=== PATIENT | female | born 1980 | race Caucasian/White ===

== ENCOUNTER 2021-12-12 19:34 | Emergency (ER) | payer BC ==
[~2021-12-12] VITALS: Ht 172.7 cm; Wt 94.5 kg
[2021-12-12 19:36] VITALS: BP 156/88
[2021-12-12] MEDS ORDERED: IV NORMAL SALINE 1000ML BAG 1,000 ML IV ONE (19:45)
[2021-12-12] MEDS ORDERED: SUMAtriptan SUCC 6 MG/0.5 ML VIAL. SQ ONE (19:45)
[2021-12-12 20:07] LABS: BASO % 1 % (0-3); EOS # 0.1 x10^3/uL (0.0-0.7); EOS % 1 % (0-3); HEMATOCRIT 40.4 % (36.0-47.0); HEMOGLOBIN 14.7 g/dL (12.0-15.5); LYMPH # 2.5 x10^3/uL (1.0-4.8); LYMPH % 35 % (24-48); MEAN CORPUSCULAR HEMOGLOBIN 32 pg (25-35); MEAN CORPUSCULAR HGB CONC 36 g/dL (31-37); MEAN CORPUSCULAR VOLUME 87 fL (79-100); MONO # 0.5 x10^3/uL (0.0-1.1); MONO % 7 % (0-9); NEUT # 3.9 x10^3/uL (1.8-7.7); NEUT % 56 % (31-73); PLATELET COUNT 136 x10^3/uL (140-400); RED BLOOD COUNT 4.62 x10^6/uL (3.50-5.40); RED CELL DISTRIBUTION WIDTH 12.3 % (11.5-14.5); WHITE BLOOD COUNT 7.1 x10^3/uL (4.0-11.0)
[2021-12-12 20:08] LABS: PROTHROMBIN TIME PATIENT 14.1 SEC (11.7-14.0)
[2021-12-12 20:10] LABS: CALCIUM 8.8 mg/dL (8.5-10.1); CREATININE 1.1 mg/dL (0.6-1.0); POTASSIUM 3.4 mmol/L (3.5-5.1)
[2021-12-12 20:16] LABS: ALBUMIN 4.2 g/dL (3.4-5.0); ALBUMIN/GLOBULIN RATIO 1.4 (1.0-1.7); TOTAL BILIRUBIN 0.9 mg/dL (0.2-1.0); TOTAL PROTEIN 7.3 g/dL (6.4-8.2)
--- NOTE | 2021-12-12 20:20 | RAD ---
PQRS Compliance Statement: One or more of the following individualized dose reduction techniques were utilized for this examinat ion: 1. Automated exposure control 2. Adjustment of the mA and/or kV according to patient size 3. Use of iterative reconstruction technique CT HEAD WITHOUT CONTRAST History: Reason: Stroke like symptoms, confusion, difficulty with speech. Comparison: None. Procedure: Axial images are obtained of the head from the skull base through the vertex without IV co ntrast. Findings: There is a dense left MCA in the sylvian fissure, images 10 and 11. The ventricles and sulci are normal for the patient's age. No mass-effect, midline shift, hemorrhage, extra-axial fluid collection, or obvious acute infarction is identified. Basilar cisterns are patent. Bone windows demonstrate no acute calvarial abnormality. The visualized paranasal sinuses are clear. Mastoid air cells are well aerated. IMPRESSION: There is dense left MCA in the sylvian fissure suspicious for thrombus of a middle cerebral artery br anch. FOR INTERNAL CODING PURPOSES Critical result: Findings discussed with NERISSA ALCOCER MD at 12/12/2021 8:11 PM. RESULT CODE: (C) Electronically signed by: Nilson Jolly MD (12/12/2021 8:18 PM) [facility]
--- NOTE | 2021-12-12 20:39 | RAD ---
Exam: Chest one INDICATION: Stroke TECHNIQUE: Frontal view of the chest Comparisons: None FINDINGS: The cardiomediastinal silhouette and pulmonary vessels are within normal limits. The lung and pleural spaces are clear. IMPRESSION: No acute cardiopulmonary process. Electronically signed by: Jerri Norris MD (12/12/2021 8:36 PM) [facility]
--- NOTE | 2021-12-12 20:39 | RAD ---
PQRS Compliance Statement: One or more of the following individualized dose reduction techniques were utilized for this examinat ion: 1. Automated exposure control 2. Adjustment of the mA and/or kV according to patient size 3. Use of iterative reconstruction technique CTA STROKE HEAD/NECK w/o Clinical Indication: Reason: Stroke like symptoms, one side weakness, slurred speech Comparison: CT head without contrast, earlier same day. Technique: Helical CT imaging from inferior to the aortic arch to the skull vertex is performed after 75 cc of Omnipaque [address] angiogram protocol. 3-D MIP reconstructions of the cervi wagner carotid arteries and [place] of [place] are performed. PQRS Compliance Statement - Stenosis calculations for CT, MR and conventional angiography are based u macario measurement of the distal ICA diameter in accordance with the NASCET methodology. Stenosis calcu lations for carotid ultrasound studies are derived from validated velocity criteria which are known t o correlate with the NASCET methodology. Findings: There is abrupt truncation of a left middle cerebral artery branch in the sylvian fissure compatible with thrombus, image 77. The aortic arch branches are patent. The cervical vertebral arteries are patent. The right artery is dominant. The posterior circulation is intact. There is persistent origin of the right posterio r cerebral artery. The common carotid arteries are patent. The right carotid bifurcation and the cervical right internal carotid artery are patent. There is occlusion of the proximal left internal carotid artery. There is severe narrowing of the lumen over the course of about 1.2 cm length, sagittal image 102. The suprac linoid left ICA is reconstituted from collateral flow. The dural venous sinuses are patent. No abnormal enhancement in the brain parenchyma is identified. The upper lungs are clear. There is degenerative spondylosis of the cervical spine most advanced at C 6/C7. The thyroid gland is heterogeneous. There is no cervical adenopathy. IMPRESSION: 1. There is abrupt truncation of a M2 branch of the left middle cerebral artery in the sylvian fissu re likely due to thrombus. 2. There is occlusion of the proximal left internal carotid artery possibly due to dissection. FOR INTERNAL CODING PURPOSES Critical result: Findings discussed with NERISSA ALCOCER MD at 12/12/2021 8:18 PM. RESULT CODE: (C) 1. Electronically signed by: Nilson Jolly MD (12/12/2021 8:37 PM) [facility]
--- NOTE | 2021-12-12 20:48 | PHYS DOC ---
Past Medical History Past Surgical History: Smoking Status: Current Every Day Smoker Alcohol Use: Occasionally Adult General Chief Complaint Chief Complaint: NEURO SYMPTOMS/DEFICITS HPI HPI The patient is a 41-year-old female with a history of tobacco use and who is otherwise healthy. She presents for evaluation of strokelike symptoms with onset at 7 PM exactly, about 40 minutes prior to arrival. Patient was noted to have difficulty speaking and to fall towards her right side and have trouble with her right side at a birthday constitution party for one of her children. She was feeling in her normal state of health earlier that day aside from what she describes as a migraine headache which she states got better before the onset of the symptoms for which she presented to the emergency department this evening. Upon initial evaluation here in the emergency department patient is anxious and hyperventilating but is able to tell me that her initial symptoms have completely resolved. She specifically denies fevers, nausea or vomiting, headache, any focal or lateralizing weakness, numbness or tingling right now, neck stiffness/pain/meningismus, vision changes, recent injury or trauma to her head, shortness of breath, chest pain of any kind, abdominal pain of any kind, hematemesis, hematochezia or melena recently. Patient is alert, appropriately interactive and in no acute distress with appropriate vital signs and blood glucose upon initial evaluation here in the emergency department. Review of Systems Review of Systems A 12 point review of systems was completed and was negative except where noted in HPI above. Current Medications Current Medications Current Medications Medications (Trade) Dose Ordered Sig/Iglesia Start Time Stop Time Status Last Admin Dose Admin Alteplase, Recombinant 76.5 ml @ 76.5 mls/hr 1X ONCE 12/12/21 21:30 12/12/21 22:29 Labetalol HCl (Normodyne Iv Push) 10 mg PRN Q10MIN PRN 12/12/21 21:00 Nicardipine HCl 50 mg/Sodium Chloride 250 ml @ 25 mls/hr CONT PRN PRN 12/12/21 21:00 Sodium Chloride 100 ml @ 100 mls/hr 1X ONCE 12/12/21 22:30 12/12/21 23:29 Sumatriptan Succinate (Imitrex) 6 mg 1X ONCE 12/12/21 19:45 12/12/21 20:39 DC Allergies Allergies Allergies Coded Allergies Type Severity Reaction Last Updated Verified No Known Drug Allergies 12/12/21 No Physical Exam Physical Exam 41-year-old female appearing nontoxic and in no acute distress, though anxious. Head is normocephalic and atraumatic. Neck is supple and nontender. Oropharynx is moist. Lungs are clear to auscultation at all stations. There is normal S1 and S2 without rubs or gallops and capillary refill is appropriate, less than 2 seconds globally. Abdomen is soft, nontender and nondistended. Skin is warm and dry without cyanosis, clubbing or edema. Psychiatrically, the patient demonstrates appropriate mood and affect and is alert. Evaluation of the extremities reveals BUEs and BLEs neurovascularly intact distally with strength out of 5, sensation intact light touch in all nerve distributions, radial, DP and PT pulses 2+ and equal bilaterally, capillary refill less than 2 seconds, hands and feet warm and well-perfused. No dependent peripheral edema distally. No calf tenderness or swelling bilaterally. Homans test is negative bilaterally. Neurologically, cranial nerves II through XII are intact and there are no lateralizing deficits seen. Speech is normal. Language is normal. Coordination is normal. There is no dysmetria with cjiyon-lk-hngz or jcuv-mv-gybc bilaterally. Strength is 5-5 in all joints of bilateral upper and lower extremities. Sensation is intact to light touch in bilateral upper and lower extremities. Patient ambulates with a narrow, steady, non-ataxic gait here in the emergency department and is alert and oriented x4. Current Patient Data Vital Signs Vital Signs Date Time Temp Pulse Resp B/P (MAP) Pulse Ox O2 Delivery O2 Flow Rate FiO2 12/12/21 19:36 98.2 88 17 156/88 (110) 100 Room Air 98.2 Lab Values Laboratory Tests Test 12/12/21 19:40 White Blood Count 7.1 x10^3/uL (4.0-11.0) Red Blood Count 4.62 x10^6/uL (3.50-5.40) Hemoglobin 14.7 g/dL (12.0-15.5) Hematocrit 40.4 % (36.0-47.0) Mean Corpuscular Volume 87 fL (79-100) Mean Corpuscular Hemoglobin 32 pg (25-35) Mean Corpuscular Hemoglobin Concent 36 g/dL (31-37) Red Cell Distribution Width 12.3 % (11.5-14.5) Platelet Count 136 x10^3/uL (140-400) L Neutrophils (%) (Auto) 56 % (31-73) Lymphocytes (%) (Auto) 35 % (24-48) Monocytes (%) (Auto) 7 % (0-9) Eosinophils (%) (Auto) 1 % (0-3) Basophils (%) (Auto) 1 % (0-3) Neutrophils # (Auto) 3.9 x10^3/uL (1.8-7.7) Lymphocytes # (Auto) 2.5 x10^3/uL (1.0-4.8) Monocytes # (Auto) 0.5 x10^3/uL (0.0-1.1) Eosinophils # (Auto) 0.1 x10^3/uL (0.0-0.7) Basophils # (Auto) 0.0 x10^3/uL (0.0-0.2) Prothrombin Time 14.1 SEC (11.7-14.0) H Prothrombin Time INR 1.1 (0.8-1.1) Activated Partial Thromboplast Time 30 SEC (24-38) Sodium Level 137 mmol/L (136-145) Potassium Level 3.4 mmol/L (3.5-5.1) L Chloride Level 101 mmol/L (98-107) Carbon Dioxide Level 24 mmol/L (21-32) Anion Gap 12 (6-14) Blood Urea Nitrogen 12 mg/dL (7-20) Creatinine 1.1 mg/dL (0.6-1.0) H Estimated GFR (Cockcroft-Gault) 55.0 BUN/Creatinine Ratio 11 (6-20) Glucose Level 88 mg/dL (70-99) Calcium Level 8.8 mg/dL (8.5-10.1) Total Bilirubin 0.9 mg/dL (0.2-1.0) Aspartate Amino Transferase (AST) 15 U/L (15-37) Alanine Aminotransferase (ALT) 30 U/L (14-59) Alkaline Phosphatase 64 U/L (46-116) Troponin I High Sensitivity 5 ng/L (4-50) Total Protein 7.3 g/dL (6.4-8.2) Albumin 4.2 g/dL (3.4-5.0) Albumin/Globulin Ratio 1.4 (1.0-1.7) Ethyl Alcohol Level < 10 mg/dL (0-10) Laboratory Tests 12/12/21 19:40 Laboratory Tests 12/12/21 19:40 EKG EKG Sinus rhythm, rate 72, no acute ST elevation or depression, CT 118, QRS 80, QTc 420, EP interpretation. Nonischemic tracing, intervals appropriate. Radiology/Procedures Radiology/Procedures CTA STROKE HEAD/NECK w/o Clinical Indication: Reason: Stroke like symptoms, one side weakness, slurred speech Comparison: CT head without contrast, earlier same day. Technique: Helical CT imaging from inferior to the aortic arch to the skull vertex is performed after 75 cc of Omnipaque [address] angiogram protocol. 3-D MIP reconstructions of the cervical carotid arteries and [place] of [place] are performed. RS Compliance Statement - Stenosis calculations for CT, MR and conventional angiography are based upon measurement of the distal ICA diameter in accordance with the NASCET methodology. Stenosis calculations for carotid ultrasound studies are derived from validated velocity criteria which are known to correlate with the NASCET methodology. Findings: There is abrupt truncation of a left middle cerebral artery branch in the sylvian fissure compatible with thrombus, image 77. The aortic arch branches are patent. The cervical vertebral arteries are patent. The right artery is dominant. The posterior circulation is intact. There is persistent origin of the right posterior cerebral artery. The common carotid arteries are patent. The right carotid bifurcation and the cervical right internal carotid artery are patent. There is occlusion of the proximal left internal carotid artery. There is severe narrowing of the lumen ov er the course of about 1.2 cm length, sagittal image 102. The supraclinoid left ICA is reconstituted from collateral flow. The dural venous sinuses are patent. No abnormal enhancement in the brain pa renchyma is identified. The upper lungs are clear. There is degenerative spondylosis of the cervical spine most advanced at C6/C7. The thyroid gland is heterogeneous. There is no cervical adenopathy. IMPRESSION: 1. There is abrupt truncation of a M2 branch of the left middle cerebral artery in the sylvian fissure likely due to thrombus. 2. There is occlusion of the proximal left internal carotid artery possibly due to dissection. FOR INTERNAL CODING PURPOSES Critical result: Findings discussed with NERISSA ALCOCER MD at 12/12/2021 8:18 PM. RESULT CODE: (C) 1. Electronically signed by: Nilson Jolly MD (12/12/2021 8:37 PM) [facility] DICTATED and SIGNED BY: NILSON JOLLY MD DATE: 12/12/212017 RS Compliance Statement: One or more of the following individualized dose reduction techniques were ut ilized for this examination: 1. Automated exposure control 2. Adjustment of the mA and/or kV according to patient size 3. Use of iterative reconstruction technique CT HEAD WITHOUT CONTRAST History: Reason: Stroke like symptoms, confusion, difficulty with speech. Comparison: None. Procedure: Axial images are obtained of the head from the skull base through the vertex without IV contrast. Findings: There is a dense left MCA in the sylvian fissure, images 10 and 11. The ventricles and sulci are normal for the patient's age. No mass-effect, midline shift, hemorrhage, extra-axial fluid collection, or obvious acute infarction is identified. Basilar cisterns are patent. Bone windows demonstrate no acute calvarial abnormality. The visualized paranasal sinuses are clear. Mastoid air cells are well aerated. IMPRESSION: There is dense left MCA in the sylvian fissure suspicious for thrombus of a middle cerebral artery branch. FOR INTERNAL CODING PURPOSES Critical result: Findings discussed with NERISSA ALCOCER MD at 12/12/2021 8:11 PM. RESULT CODE: (C) Electronically signed by: Nilson Jolly MD (12/12/2021 8:18 PM) [facility] DICTATED and SIGNED BY: NILSON JOLLY MD DATE: 12/12/212007 Exam: Chest one INDICATION: Stroke TECHNIQUE: Frontal view of the chest Comparisons: None FINDINGS: The cardiomediastinal silhouette and pulmonary vessels are within normal limits. The lung and pleural spaces are clear. IMPRESSION: No acute cardiopulmonary process. Electronically signed by: Jerri Rodriguez MD (12/12/2021 8:36 PM) [facility] DICTATED and SIGNED BY: JERRI RODRIGUEZ MD DATE: 12/12/212035 Course & Med Decision Making Course & Med Decision Making Work-up as above. NIHSS is 0 on serial reassessments. Patient remains symptom- free and all presenting symptoms remain resolved. Contacted by radiologist concerning findings on CTA head/neck above. Contact immediately made with stroke neurologist Dr. De León at [facility] who is going to review images but tentatively advises alteplase administration if patient is amenable. The patient and I discussed at length the risks of alteplase administration including risk of devastating intracerebral or other bleeding and risk of severe allergic reaction causing respiratory failure or other severe consequences. Patient understands the risk of decompensation, permanent disability, loss of current lifestyle and even in electing to receive alteplase but she also understands risks of devastating permanent stroke symptoms if she declines it. She elects to receive alteplase. She is alert and oriented x4, not clinically intoxicated, not suicidal and in my opinion has capacity to make an appropriate decision about alteplase once advised of the risks and benefits, which she is able to restate fully in her own words. No clear contraindications to TPA after detailed review of checklist. Plan transfer to [facility] neuro ICU. 2104: Recontacted Dr. De León and she advises that we proceed with alteplase. NIH stroke scale score remains 0. Alteplase hung in running. Transferring in stable condition to [facility] for further neuro-intensive care via EMS at this time. Critical care time was 95 minutes today. Dragon Disclaimer Dragon Disclaimer This electronic medical record was generated, in whole or in part, using a voice recognition dictation system. Departure Departure Impression: Primary Impression: Acute ischemic left MCA stroke Additional Impression: Cerebrovascular accident, large vessel Disposition: 02 SHORT TERM HOSPITAL Condition: GUARDED Problem Qualifiers NERISSA ALCOCER MD Dec 12, 2021 20:48
[2021-12-12] MEDS ORDERED: LABETALOL 20 MG/4 ML DISP.SYRIN. IVP PRN (21:00)
[2021-12-12] MEDS ORDERED: IOHEXOL 300 MG/ML 100ML VIAL. ONE (21:10)
[2021-12-12] MEDS ORDERED: ALTEPLASE 8.5 MG IV ONE (21:30)
[2021-12-12] MEDS ORDERED: ALTEPLASE IV ONE (21:30)
[2021-12-12] MEDS ORDERED: IV NORMAL SALINE 100ML 100 ML IV ONE (22:30)
--- NOTE | 2021-12-13 01:09 | EKG ---
[facility] [address] [place] [address] Test Date: 2021-12-12 Test Time: 19:38:41 Pat Name: NAIMA APARICIO Department: Room: Gender: F Lead Java [id number] Developer: : 1980 Requested By: NERISSA ALCOCER Order Number: [id number] Reading MD: Fernando Segura Measurements Intervals [place] Rate: 72 P: -21 [place]: 118 QRS: 53 QRSD: 80 T: 31 QT: 382 QTc: 420 Interpretive Statements SINUS RHYTHM Electronically Signed On 12-16-2021 13:47:01 CDT by Fernando Segura
== END 2021-12-12 21:32 | disposition short-term general hospital (02) ==
LOC: ER 19:34
DX: I63.512 Cerebral infarction due to unspecified occlusion or stenosis of left middle cerebral artery (principal); I63.9 Cerebral infarction, unspecified; F17.200 Nicotine dependence, unspecified, uncomplicated; G43.909 Migraine, unspecified, not intractable, without status migrainosus
CPT/HCPCS: 36415; 37195; 70450; 70496; 70498; 71045; 80053; 84484; 85025; 85610; 85730; 93005; 96360; 96361; 99291; 99292; G0480; J2997; J7030; 82962